=== PATIENT | male | born 1995 | race American Indian/Alaskan Native ===

== ENCOUNTER 2021-08-17 23:11 | Emergency (ER) | payer SELFPAY ==
[2021-08-18] MEDS ORDERED: ASPIRIN 325 MG TAB PO ONE (00:58)
[2021-08-18] MEDS ORDERED: predniSONE 20 MG TAB PO ONE (00:58)
[2021-08-18 01:26] LABS: Basophils % (Auto) 0.5 % (0.0-1.8); Eosinophils # (Auto) 0.1 K/mm3 (0.0-0.4); Eosinophils % (Auto) 0.8 % (0.0-4.3); Hematocrit 40.8 % (35.5-45.6); Hemoglobin 13.1 gm/dl (11.8-15.2); Lymphocytes # (Auto) 2.5 K/mm3 (1.2-5.4); Lymphocytes % (Auto) 31.5 % (13.4-35.0); Mean Corpuscular HGB Conc 32 % (32-34); Mean Corpuscular Volume 80 fl (84-94); Monocytes # (Auto) 0.5 K/mm3 (0.0-0.8); Monocytes % (Auto) 6.6 % (0.0-7.3); Platelet Count 245 K/mm3 (140-440); Red Blood Count 5.11 M/mm3 (3.65-5.03); Red Cell Distribution Width 14.2 % (13.2-15.2)
[2021-08-18 01:50] LABS: Alanine Aminotransferase 54 units/L (7-56); Albumin 4.4 g/dL (3.9-5); BUN/Creatinine Ratio 14; Blood Urea Nitrogen 13 mg/dL (9-20); Calcium 9.2 mg/dL (8.4-10.2); Hemolysis Index 6
--- NOTE | 2021-08-18 02:04 | XRay Report ---
XR chest routine 2V INDICATION / CLINICAL INFORMATION: Chest pain. COMPARISON: None available. FINDINGS: SUPPORT DEVICES: None. HEART /PULMONARY VASCULATURE: No significant abnormality. LUNGS / PLEURA: No significant pulmonary or pleural abnormality. No pneumothorax. ADDITIONAL FINDINGS: No significant additional findings. IMPRESSION: 1. No acute findings. Signer Name: Alo Urias MD Signed: 08/18/2021 1:59 AM Workstation Name: [id number]
--- NOTE | 2021-08-18 02:32 | Emergency Department Report ---
ED Chest Pain HPI - General Chief Complaint: Chest Pain Stated Complaint: CHEST PAIN Source: patient Mode of arrival: Ambulatory Limitations: No Limitations - History of Present Illness Initial Comments: Patient is a 25-year-old -[place]ish male with a history of anxiety who presents to the ED with complaint of chest tightness and "being overwhelmed at work" about 1 week ago intermittently. Patient states that the symptoms have been persistent and intermittent each time he goes to work. Patient denies dizziness, syncope, shortness of breath, diaphoresis, palpitations, headache, lightheadedness, fever, chills, cough, traumatic injury, heavy lifting, back pain, neck pain, abdominal pain, nausea and vomiting or diarrhea MD Complaint: chest pain (intermittent for 1 week "after being overwhelmed at work") -: Sudden, week(s) Onset: during exertion, other (inspiration) Pain Radiation: none Severity: mild Severity scale (0 -10): 3 Quality: aching, dull Consistency: intermittent Improves With: nothing Worsens With: exertion, inspiration, palpation, movement re: denies: nausea, vomting, diaphoresis, dyspnea, sense of impending doom Other Symptoms: denies: cough, fever, rash, acid taste in mouth, leg swelling, palpitations, other Treatments Prior to Arrival: none - Related Data On Oral Contraceptives: No Previous Rx's Medication Instructions Recorded Last Taken Type Naproxen 500 mg PO Q12H PRN #30 tablet 08/18/21 Unknown Rx hydrOXYzine PAMOATE [Vistaril] 25 mg PO Q12HR PRN #30 capsule 08/18/21 Unknown Rx Allergies Allergy/AdvReac Type Severity Reaction Status Date / Time No Known Allergies Allergy Unverified 08/18/21 00:23 Heart Score - HEART Score History: Slightly suspicious EKG: Normal Age: < 45 Risk factors: No known risk factors Troponin: < normal limit HEART Score: 0 - EKG Read Time Time EKG Completed: 00:25 EKG Read Time: 00:30 - Critical Actions Critical Actions: 0-3 pts:0.9-1.7%risk of adverse cardiac event.Candidate for discharge ED Review of Systems ROS: Stated complaint: CHEST PAIN Other details as noted in HPI Constitutional: denies: chills, fever Eyes: denies: eye pain, eye discharge, vision change ENT: denies: ear pain, throat pain Respiratory: denies: cough, shortness of breath, wheezing Cardiovascular: chest pain (Chest tightness). denies: palpitations Endocrine: no symptoms reported Gastrointestinal: denies: abdominal pain, nausea, diarrhea Genitourinary: denies: urgency, dysuria Musculoskeletal: denies: back pain, joint swelling, arthralgia Skin: denies: rash, lesions Neurological: denies: headache, weakness, paresthesias Psychiatric: denies: anxiety, depression Hematological/Lymphatic: denies: easy bleeding, easy bruising ED Past Medical Hx - Past Medical History Previous Medical History?: No - Surgical History Past Surgical History?: No - Social History Smoking Status: Never Smoker Substance Use Type: None - Medications Home Medications: Home Medications Medication Instructions Recorded Confirmed Last Taken Type Naproxen 500 mg PO Q12H PRN #30 tablet 08/18/21 Unknown Rx hydrOXYzine PAMOATE [Vistaril] 25 mg PO Q12HR PRN #30 capsule 08/18/21 Unknown Rx ED Physical Exam - General Limitations: No Limitations General appearance: alert, in no apparent distress - Head Head exam: Present: atraumatic, normocephalic, normal inspection - Eye Eye exam: Present: normal appearance, PERRL, EOMI Pupils: Present: normal accommodation - ENT ENT exam: Present: normal exam, normal orophraynx, mucous membranes moist, TM's normal bilaterally, normal external ear exam - Neck Neck exam: Present: normal inspection, full ROM - Respiratory Respiratory exam: Present: normal lung sounds bilaterally. Absent: respiratory distress, wheezes, rhonchi, stridor, chest wall tenderness, accessory muscle use, decreased breath sounds, prolonged expiratory - Cardiovascular Cardiovascular Exam: Present: regular rate, normal rhythm, normal heart sounds. Absent: systolic murmur, diastolic murmur, rubs, gallop - GI/Abdominal GI/Abdominal exam: Present: soft, normal bowel sounds. Absent: tenderness, guarding, hyperactive bowel sounds, hypoactive bowel sounds - Extremities Exam Extremities exam: Present: normal inspection, full ROM, normal capillary refill - Back Exam Back exam: Present: normal inspection, full ROM. Absent: tenderness, CVA tenderness (R), CVA tenderness (L), muscle spasm - Neurological Exam Neurological exam: Present: alert, oriented X3, CN II-XII intact, normal gait, reflexes normal - Psychiatric Psychiatric exam: Present: normal affect, normal mood - Skin Skin exam: Present: warm, dry, intact, normal color. Absent: rash ED Course Vital Signs 08/18/21 08/18/21 00:16 02:58 Temperature 98.3 F Pulse Rate 91 H 76 Respiratory 18 16 Rate Blood Pressure 146/95 Blood Pressure 138/85 [Right] O2 Sat by Pulse 98 100 Oximetry KEENAN score - Keenan Score Age > 65: (0) No Aspirin use within the Past 7 Days: (0) No 3 or more CAD Risk Factors: (0) No 2 or more Angina events in past 24 hrs: (0) No Known CAD with more than 50% Stenosis: (0) No Elevated Cardiac Markers: (0) No ST Deviation Greater than 0.5mm: (0) No KEENAN Score: 0 ED Medical Decision Making - Lab Data Result diagrams: 08/18/21 01:10 08/18/21 01:10 - EKG Data EKG shows normal: sinus rhythm Rate: normal - EKG Data Interpretation: normal EKG - Radiology Data [facility] [address] [place] [address] XRay Report Signed Patient: CRISTHIAN SANCHEZ MR#: [id number] : 1995 Acct:[id number] Age/Sex: 25 / M ADM Date: 08/17/21 Loc: ED Attending Dr: Ordering Physician: WILLIE MANN Date of Service: 08/18/21 Procedure(s): XR chest routine 2V Accession Number(s): [id number] cc: WILLIE MANN Fluoro Time In Minutes: XR chest routine 2V INDICATION / CLINICAL INFORMATION: Chest pain. COMPARISON: None available. FINDINGS: SUPPORT DEVICES: None. HEART /PULMONARY VASCULATURE: No significant abnormality. LUNGS / PLEURA: No significant pulmonary or pleural abnormality. No pneumothorax. ADDITIONAL FINDINGS: No significant additional findings. IMPRESSION: 1. No acute findings. Signer Name: Cata Urias MD Signed: 08/18/2021 1:59 AM Workstation Name: [id number] Transcribed By: ANG Dictated By: CATA URIAS MD Electronically Authenticated By: CATA URIAS MD Signed Date/Time: 08/18/21158 DD/ 8 TD/TT: - Medical Decision Making This is a 25-year-old -[place]ish male with a history of anxiety who presents to the ED with complaint of chest tightness and "being overwhelmed at work" about 1 week ago intermittently. Patient states that the symptoms have been persistent and intermittent each time he goes to work. In the ED, patient is alert and oriented x3 and is not in any distress. Patient heart score is 0. Patient symptoms are likely due to anxiety. Lab test results were reviewed and are all nonactionable including initial troponin levels. Chest x-ray showed no acute cardiopulmonary abnormalities or pneumonitis. Based on the history and physical exam findings, and the fact that the patient's heart score is 0, patient symptoms are likely due to anxiety. Patient will discharge home on m edications advised to follow-up with his primary care physician in 5 to 7 days for reevaluation or return to the ED immediately if symptoms get worse. - Differential Diagnosis Anxiety; ACS; pneumonia; costochondritis; Critical care attestation.: If time is entered above; I have spent that time in minutes in the direct care of this critically ill patient, excluding procedure time. ED Disposition Clinical Impression: Acute costochondritis, Acute nonspecific chest pain with low risk of coronary artery disease, Anxiety as acute reaction to exceptional stress Disposition: 01 HOME / SELF CARE / HOMELESS Is pt being admited?: No Does the pt Need Aspirin: No Condition: Stable Instructions: Generalized Anxiety Disorder, Adult, Costochondritis, [id number], Chest Wall Pain, [id number], Nonspecific Chest Pain, Adult, [id number], Chest Pain (ED) Additional Instructions: All lab test results were reviewed and are all nonactionable. Chest x-ray s howed no acute cardiopulmonary abnormalities or pneumonitis. Therefore take medication with food, drink plenty of fluids and follow-up with your primary care physician in 7 to 10 days for reevaluation. Return to the ED immediately if symptoms get worse. Prescriptions: Naproxen 500 mg PO Q12H PRN #30 tablet PRN Reason: Pain , Severe (7-10) hydrOXYzine PAMOATE [Vistaril] 25 mg PO Q12HR PRN #30 capsule PRN Reason: Anxiety Referrals: [facility] [Provider Group] - 3-5 Days Forms: Work/School Release Form(ED) Time of Disposition: 02:31 Print Language: YI
[2021-08-18 03:00] VITALS: BP 138/85
--- NOTE | 2021-08-19 09:37 | Electrocardiograph Report ---
[facility] Test Date: 2021-08-17 Test Time: 23:18:42 Pat Name: CRISTHIAN SANCHEZ Department: Room: Gender: M [employer]: NATALEE : 1995 Requested By: DEBBIE SOTELO Order Number: [id number] Reading MD: Porfirio López Measurements Intervals [place] Rate: 94 P: 43 NC: 134 QRS: 56 QRSD: 86 T: 27 QT: 333 QTc: 418 Interpretive Statements Sinus rhythm RSR' IN V1, NORMAL VARIATION No previous ECG available for comparison Electronically Signed On 08-19-2021 9:37:07 EST by Porfirio López
== END 2021-08-18 03:01 | disposition home or self-care (01) ==
LOC: ED 23:11
DX: M94.0 Chondrocostal junction syndrome [Tietze] (principal); F41.1 Generalized anxiety disorder; F43.0 Acute stress reaction; Z79.899 Other long term (current) drug therapy
CPT/HCPCS: 36415; 71046; 80053; 84484; 85025; 93005; 99284; J7512